=== PATIENT | female | born 1990 | race Caucasian/White ===

== ENCOUNTER 2025-05-01 01:26 | Emergency (ER) | payer SELFPAY ==
[~2025-05-01] VITALS: Ht 170.2 cm; Wt 91.0 kg
[2025-05-01 01:43] VITALS: TEMP 36.9; O2SAT 100
[2025-05-01] MEDS: CEPHALEXIN 250MG CAPSULE PO ONE (02:18)
[2025-05-01] MEDS: KETOROLAC 15MG/ML VIAL IM ONE (02:18)
[2025-05-01] MEDS ORDERED: CEPH500C2 MT (02:37)
[2025-05-01 02:42] VITALS: BP 130/89; PULSE 91; RESP 16; O2SAT 98
== END 2025-05-01 02:44 | disposition home or self-care (01) ==
LOC: ER 01:26
DX: L03.116 Cellulitis of left lower limb (principal)
CPT/HCPCS: 99283; 96372; J1885